=== PATIENT | female | born 2000 | race African-American/Black ===

== ENCOUNTER 2021-07-19 16:04 | Emergency (ER) | payer OTHER, SELFPAY ==
[2021-07-19 16:07] VITALS: BP 127/78; PULSE 104; RESP 18; TEMP 36.4; O2SAT 100
--- NOTE | 2021-07-19 17:20 | ED.GENADULT ---
HPI - General Adult General Chief complaint: Unspecified Stated complaint: Sore throat Time Seen by Provider: 07/19/21 17:01 History of Present Illness HPI narrative: 89-year-old female presents the emergency room with complaints of a sore throat for 3 days. Patient denies fever, sinus congestion, postnasal drip, cough. No history of similar symptoms. Has not taken any tzfy-any-otyltio medications to alleviate pain. Related Data Home Medications Medication Instructions Recorded Confirmed No Home Medications 07/19/21 07/19/21 Allergies Allergy/AdvReac Type Severity Reaction Status Date / Time No Known Allergies Allergy Verified 07/19/21 16:06 Review of Systems Review of Systems: CONSTITUTIONAL: Denies fever, chills, or sweats. EYES: Denies visual changes, redness, or discharge. ENT: Reports sore throat. CARDIOVASCULAR: Denies chest pain, palpitations, or edema. RESPIRATORY: Denies cough or dyspnea. GASTROINTESTINAL: Denies abdominal pain, nausea, vomiting, or diarrhea. GENITOURINARY: Denies dysuria or hematuria. SKIN: Denies rash or itching. MUSCULOSKELETAL: Denies back pain, joint pain, or myalgia. NEUROLOGIC: Denies headache, numbness, dizziness, or weakness. PSYCHIATRIC: Denies anxiety or depression. Exam Narrative: GENERAL: Well-appearing, well-nourished, and in no acute distress. HEAD: Normocephalic, atraumatic. EYES: PERRLA and EOMI. ENT: Nares clear, no rhinorrhea or epistaxis. Mucous membranes moist. Oropharynx without tonsillar hypertrophy exudate or other lesions. Tonsillar stones noted to the left tonsil bilateral TMs pearly dhaliwal nonbulging NECK: Supple. No cervical adenopathy or masses. No carotid bruits or JVD CHEST: Clear to auscultation. No respiratory distress. No wheezes rales or rhonchi HEART: Regular rate and rhythm. No murmur heard. Normal peripheral pulses. ABDOMEN: Soft, nontender, nondistended, normal active bowel sounds. EXTREMITIES: Normal range of motion. No edema. SKIN: Warm, dry, no rash. NEURO: No focal deficits. Alert and oriented x3. PSYCH: Normal mood and affect. Course Vital Signs Vital signs: Vital Signs Temperature 36.4 C 07/19/21 16:07 Pulse Rate 104 H 07/19/21 16:07 Respiratory Rate 18 07/19/21 16:07 Blood Pressure 127/78 07/19/21 16:07 Pulse Oximetry 100 07/19/21 16:07 Temperature 36.4 C 07/19/21 16:07 Pulse Rate 104 H 07/19/21 16:07 Respiratory Rate 18 07/19/21 16:07 Blood Pressure 127/78 07/19/21 16:07 Pulse Oximetry 100 07/19/21 16:07 Medical Decision Making MDM Narrative Medical decision making narrative: 20-year-old female presents emergency room with complaints of a sore throat. Strep screen was negative. On examination appears that the patient has tonsillar stones of the left tonsil. Counseled the patient on using a WaterPik to remove the tonsils stones Vital Signs Vital Signs: Vital Signs Temperature 36.4 C 07/19/21 16:07 Pulse Rate 104 H 07/19/21 16:07 Respiratory Rate 18 07/19/21 16:07 Blood Pressure 127/78 07/19/21 16:07 Pulse Oximetry 100 07/19/21 16:07 Temperature 36.4 C 07/19/21 16:07 Pulse Rate 104 H 07/19/21 16:07 Respiratory Rate 18 07/19/21 16:07 Blood Pressure 127/78 07/19/21 16:07 Pulse Oximetry 100 07/19/21 16:07 Lab Data Lab results reviewed: Yes I reviewed the patient's lab results. Labs: Strep Screen Presumptive Negative *(Reference Range: Negative)* Discharge Plan Discharge Clinical Impression: Calculus of tonsil Patient Disposition: Home, Self-Care Condition: Stable Instructions: Antibiotic Form Additional Instructions: Recommend using a WaterPik, to irrigate tonsils. Tylenol and ibuprofen as needed for discomfort. Prescriptions: No Action No Home Medications RF: 0 Follow-up/Referrals: NICOLAUS, [Primary Care Provider] - Time of Disposition
== END 2021-07-19 17:44 | disposition home or self-care (01) ==
LOC: ANHED 17:44
PROVIDERS: Emergency Provider Nurse Practitioner Family
DX: J35.8 Other chronic diseases of tonsils and adenoids (principal)
CPT/HCPCS: 87081; 87880; 99283

== ENCOUNTER 2023-04-10 20:15 | Emergency (ER) | payer OTHER, SELFPAY ==
[2023-04-10 21:02] VITALS: BP 134/75; PULSE 82; RESP 14; TEMP 36.9; O2SAT 100
[2023-04-10 21:29] LABS: Appearance Urine Turbid (Clear); Bacteria Urine 4+ /hpf; Bilirubin Urine 1+ (Negative); Blood Urine 3+ (Negative); Color Urine Dark Yellow (Yellow); Glucose Urine UA Negative (Negative); Ketones Urine 3+ mg/dL (Negative); Leukocyte Esterase Ur 2+ LEU/UL (Negative); Need Manual Microscopic Reviewed; Nitrate Urine Positive (Negative); Protein Urine 3+ mg/dL (Negative); RBC Urine >100 /hpf (0-2); Specific Grav Ur 1.026 (1.001-1.035); Squamous Epithelial Cell Urine Moderate /hpf (Few); WBC Urine >100 /hpf
[2023-04-10 21:30] LABS: Add Urine Microscopic? YES
--- NOTE | 2023-04-10 23:09 | ED.GENADULT ---
HPI - General Adult General Chief complaint: Urogenital-Female Stated complaint: UTI Time Seen by Provider: 04/10/23 23:01 Source: patient Mode of arrival: ambulatory Limitations: no limitations History of Present Illness HPI narrative: This is a 22-year-old female who presents to the ED with chief complaint of dysuria, frequency and urgency the past couple of days. Also reports hematuria. She has 1 UTI past. Denies flank pain, fevers, chills,, vomiting. Denies any vaginal discharge or concern for STD. Related Data Allergies Allergy/AdvReac Type Severity Reaction Status Date / Time No Known Allergies Allergy Verified 04/10/23 22:58 Review of Systems Review of Systems: All systems as dictated in HPI Exam Narrative: GENERAL: Well-appearing, well-nourished, and in no acute distress. HEAD: Normocephalic, atraumatic. EYES: PERRLA and EOMI. ENT: Nares clear, no rhinorrhea or epistaxis. Mucous membranes moist. Oropharynx without tonsillar hypertrophy exudate or other lesions. NECK: Supple. No adenopathy or masses. CHEST: No respiratory distress. Clear to auscultation. No wheezes rales or rhonchi HEART: Regular rate and rhythm. No murmur heard. Normal peripheral pulses. ABDOMEN: Soft, nontender, nondistended, normal active bowel sounds. Negative flank tenderness bilaterally. MSK: Normal range of motion. No edema. SKIN: Warm, dry, no rash. NEURO: Alert and oriented x3. No focal deficits. PSYCH: Normal mood and affect. Course Vital Signs Vital signs: Vital Signs Temperature 98.5 F 04/10/23 21:02 Pulse Rate 82 04/10/23 21:02 Respiratory Rate 14 04/10/23 21:02 Blood Pressure 134/75 04/10/23 21:02 Pulse Oximetry 100 04/10/23 21:02 Oxygen Delivery Room Air 04/10/23 21:02 Temperature 98.5 F 04/10/23 21:02 Pulse Rate 80 04/10/23 23:30 Respiratory Rate 16 04/10/23 23:30 Blood Pressure 120/75 04/10/23 23:30 Pulse Oximetry 100 04/10/23 23:30 Oxygen Delivery Room Air 04/10/23 21:02 Medical Decision Making MDM Narrative Medical decision making narrative: This is a 22-year-old female who presents the ED for chief complaint dysuria and hematuria. Vitals are normal. Flank pain. Injuries. Urinalysis shows nitrite positive, consistent with sepsis UTI. Prescription for Keflex given. Urine culture sent. pt will be discharged in stable condition. Return precautions given and supportive measures discussed. Pt is understanding and agreeable with plan for discharge and follow-up with PCP. Vital Signs Vital Signs: Vital Signs Temperature 98.5 F 04/10/23 21:02 Pulse Rate 82 04/10/23 21:02 Respiratory Rate 14 04/10/23 21:02 Blood Pressure 134/75 04/10/23 21:02 Pulse Oximetry 100 04/10/23 21:02 Oxygen Delivery Room Air 04/10/23 21:02 Temperature 98.5 F 04/10/23 21:02 Pulse Rate 80 04/10/23 23:30 Respiratory Rate 16 04/10/23 23:30 Blood Pressure 120/75 04/10/23 23:30 Pulse Oximetry 100 04/10/23 23:30 Oxygen Delivery Room Air 04/10/23 21:02 Lab Data Labs: Lab Results 04/10/23 Range/Units 21:05 Urine Color Dark yellow (Yellow) Urine Appearance Turbid H (Clear) Urine pH 6.0 (5.0-9.0) Ur Specific [place] 1.026 (1.001-1.035) Urine Protein 3+ H (Negative) mg/dL Urine Glucose (UA) Negative (Negative) mg/dL Urine Ketones 3+ H (Negative) mg/dL Ur Blood (Man) 3+ H (Negative) Urine Nitrate Positive H (Negative) Urine Bilirubin 1+ H (Negative) Urine Urobilinogen 1.0 (<2.0) mg/dL Add Ur Microanalysis Reviewed Leukocyte Esterase Rfl 2+ H (Negative) JOHN/UL Urine RBC >100 H (0-2) /hpf Urine WBC >100 H /hpf Ur Squamous Epith Cells Moderate (Few) /hpf Urine Bacteria 4+ H /hpf Urine Casts 3-5 UCG Bedside Result Negative Reference Range: Negative Urine Characteristics Cloudy
[2023-04-10] MEDS: CEPHALEXIN 500 MG CAPSULE PO (23:28)
[2023-04-10 23:30] VITALS: BP 120/75; PULSE 80; RESP 16; O2SAT 100
== END 2023-04-10 23:30 | disposition home or self-care (01) ==
LOC: ANHED 23:20
PROVIDERS: Emergency Medicine; Emergency Provider Physician Assistant
DX: N39.0 Urinary tract infection, site not specified (principal)
CPT/HCPCS: 81001; 81025; 87077; 87086; 87186; 99283; A9270